=== PATIENT | male | born 1950 ===

== ENCOUNTER 2016-12-18 17:17 | Inpatient (IN) | payer MEDICARE ==
[~2016-12-18] VITALS: Ht 182.8 cm; Wt 107.0 kg
--- NOTE | ~2016-12-18 | PR ---
[place], [place] PROGRESS NOTE [id number] #: [id number] ROOM: 310 DOCTOR: ANN SALAZAR MD BIRTHDATE: [birth year] DOS: 12/21/2016 CHIEF COMPLAINT: "Yeah, I will go into a rehab to make whatever life I have possible." SUMMARY OF THE VISIT: The patient was interviewed as he was resting quietly in bed. He engaged readily in conversation. He was short and terse, rather sarcastic with me for the most part. He did talk to me about having the family session yesterday with his daughters and did state that he did agree to go to a 30-day rehab and hopefully into assisted living. He did seem more negative about this then I thought he would be and was very sarcastic about going into any type of rehab, stating that his life was not worth living anyway, so how would rehab help him in any way. I attempted to support and redirect and he did lighten his approach. He did report on a positive note that he is sleeping better with the Remeron and he has been compliant with it. He denies any side effects from the medication itself. MENTAL STATUS: He remains alert and oriented with some gaps. Mood does seem to be trending gradually toward improvement and euthymia. Affect is more appropriate. There is no denisha or hypomania. There are no overt auditory or visual hallucinations. No delusions, no paranoia. Memory for the most part is intact. PLAN: I will maintain his current psychotropic regimen as he is achieving some benefits with the Remeron at this time. We will continue to engage him in individual and naqvi milieu activity with the plan to return to the least restrictive environment when psychiatrically stable. ANN SALAZAR MD CM:PNTRANS 5 1 ANN SALAZAR MD 12/21/1633 interface
--- NOTE | ~2016-12-18 | PR ---
[place], [place] PROGRESS NOTE NAME: BHARGAVI SANTANA UNIT #: [id number] ROOM: 310 DOCTOR: ANN SALAZAR MD BIRTHDATE: [birth year] DOS: 12/20/2016 CHIEF COMPLAINT: "My daughter is full of shit." SUMMARY OF THE VISIT: The patient was interviewed as he rested in bed. He continues to deny suicidal thoughts and states that his daughters are full of shit. When pushed as to why they would believe that he is so depressed, he reported once again that he feels that they have noticed that he has not been the same since he broke up with his girlfriend in April. He has, however, also verbalized that he has had issues with sleep, appetite and memory and these are all consistent with ongoing neurovegetative symptoms of major depression. He did on a positive note take the Remeron last evening. He is slated to have a family session today. MENTAL STATUS: He is alert and oriented with mild time gaps, but nothing major. Mood does seem to be depressed. Affect is still somewhat flat and blunted with a constricted range. He denies any suicidal thoughts. There is no denisha or hypomania. There are no overt auditory or visual hallucinations. No delusions are voiced. No paranoia seems present. Memory for the most part is intact. PLAN: I will maintain his current dose of Remeron 15 mg at bedtime. We will proceed with the family session and determine from there what information is pertinent to determine whether or not he needs to have a continued length of stay or not. Engage in individual and naqvi milieu activity, returning home or to the least restrictive environment when psychiatrically stable. ANN SALAZAR MD CM:PNTRANS [id number] ANN SALAZAR MD 12/20/16 0842 interface
--- NOTE | ~2016-12-18 | PR ---
[place], [place] PROGRESS NOTE NAME: BHARGAVI SANTANA UNIT #: [id number] ROOM: 310 DOCTOR: ANN SALAZAR MD BIRTHDATE: [birth year] DOS: 12/22/2016 CHIEF COMPLAINT: "I guess I am better, but everything is relative isn't it?" SUMMARY OF THE VISIT: The patient was interviewed in his room. He responded appropriately to questions, but was rather sarcastic, short and terse with me. He reports he is sleeping better since the initiation of the Remeron and does note that his appetite has improved. He still is depressed, some of this is situational. He is not happy with being here, but realizes that he needs to receive some type of help. He continues to minimize some of his actions. There is no hypomania or denisha. There are no psychotic symptoms. There are no side effects from the medication themselves. MENTAL STATUS: He is alert and oriented to person, place and time. Mood does seem to be trending significantly towards euthymia. Affect is much more appropriate. There are no symptoms of hypomania or denisha. There are no psychotic symptoms noted. He processes information well and his speech rate and pattern is within normal limits. He denies suicidal thoughts, homicidal thoughts and any self-injurious thoughts. Memory is intact for short, intermediate and long-term. PLAN: Maintain the current psychotropic regimen, continue to engage in individual and naqvi milieu activity. We are awaiting a passer to be able to discharge him into a 30-day rehab stay. The ultimate plan would be to do this and then from there have him set up in an assisted living situation. We will continue to have him engage in individual and naqvi milieu activity, returning to the least restrictive environment then when stable. ANN SALAZAR MD CM:PNTRANS [phone] ANN SALAZAR MD 12/22/1615 interface
--- NOTE | ~2016-12-18 | WRIGHTHP ---
[place], [place] PATIENT HISTORY AND PHYSICAL EXAM NAME: BHARGAVI SANTANA [facility] #: [id number] UNIT #: [id number] ROOM: 312 DOCTOR: ANN SALAZAR MD BIRTHDATE: [birth year] DOS: 12/19/2016 CHIEF COMPLAINT: "I am not suicidal, I don't know why my daughter thinks that I am disowning her when I get back home." HISTORY OF PRESENT ILLNESS: This is a 66-year-old white male who was sent here on an involuntary basis from [facility] in the [facility]. The patient apparently had presented there with problems with his blood sugar. Per his daughter's report, she feels that he has been adjusting his insulin pump and has been turning it up to the point where his blood sugars have been dangerously low. She stated to the physicians there that she feels that her dad is trying to kill himself. This morning and last evening here, he has convincingly denied suicidal thoughts, stating that this is the furthest thing from his mind and he would never do such a stupid thing. He reports that he is sleeping well, eating well and denies the need for any type of medication. He does report an episode of depression in the past when he broke up with his girlfriend of 6 years and also after the deaths of his mother and brother recently. He, however, denies any neurovegetative symptoms and again consistently is denying any suicidal ideation, homicidal ideation or any self-injurious thoughts. He is very much interested in being able to get out of the hospital because he wants to attend his son's birthday. He was pleasant and bright upon approach. PAST MEDICAL HISTORY: Remarkable for the diabetes, vitamin D deficiency, hyperlipidemia, coronary artery disease. MENTAL STATUS: The patient is alert and oriented to person, place and time. Mood seems fairly euthymic. Affect is normal. Speech rate and pattern is within normal limits. There is no hypomania or denisha. There are no auditory or visual hallucinations. No delusions, no paranoia. Short, intermediate and long-term memories are intact. DIAGNOSIS: Major depression, recurrent. PLAN: At this point, the patient is refusing to take medications, stating that he is not depressed and does not need unnecessary medicine. He was pleasant and cooperative upon approach and I discussed with him the need for us to gain more information in order to ascertain as to whether or not he needs to have a continued stay here or if it is safe to return him home. Along these lines, I have talked to [employer] to reach out to both the son and the daughter to gain more information about his behavior and his mood. Once we have a better understanding of what is happening, we will be able to more appropriately determine continued length of stay and discharge plans. [place], [place] PATIENT HISTORY AND PHYSICAL EXAM [facility]: [id number] #: [id number] ROOM: [facility] DOCTOR: ANN SALAZAR MD BIRTHDATE: [birth year] ANN SALAZAR MD CM:HISPHYS:PATIENT HISTORY AND PHYSICAL EXAMINATION 2 6 ANN SALAZAR MD 12/19/16814 interface
[2016-12-18] MEDS ORDERED: TYLENOL325 M2 PO (17:23)
[2016-12-18] MEDS ORDERED: ASPIRIN ADULT L81 M1 PO (17:23)
[2016-12-18] MEDS ORDERED: GLUCOSE GEL38 GM PO (17:24)
[2016-12-18] MEDS ORDERED: FLONASE ALLERG9.9 ML NAS (17:25)
[2016-12-18] MEDS ORDERED: COZAAR100 MG PO (17:25)
[2016-12-18] MEDS ORDERED: PLAVIX75 M1 PO (17:26)
[2016-12-18] MEDS ORDERED: VITAMIN D-32000 UNIT PO (17:29)
[2016-12-18] MEDS ORDERED: MOTRIN 600 MG E4 TAB PO (17:30)
[2016-12-18] MEDS ORDERED: CRESTOR10 M1 PO (17:30)
[2016-12-18] MEDS ORDERED: LANTUS SOL100 UNIT/1 SQ (17:32)
--- NOTE | 2016-12-18 18:48 | NUR ---
dr hare aware of pt having an insulin pump and that the patient was decreasing and increasing his insuline intentionally to od. pt is depressed per daughter his mother recently
[2016-12-18 21:23] VITALS: BP 151/67
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
--- NOTE | 2016-12-18 21:45 | NUR ---
INITIAL BEDSIDE GLUCOSE OBTAINED ON ADMISSION 236.
--- NOTE | 2016-12-18 21:56 | NUR ---
URINE SENT PER ORDERS
[2016-12-18 21:59] LABS: BILIRUBIN NEGATIVE (NEGATIVE); BLOOD NEGATIVE (NEGATIVE); CLARITY CLEAR (CLEAR); COLOR YELLOW (YELLOW); GLUCOSE NEGATIVE (NEGATIVE); KETONE NEGATIVE (NEGATIVE); LEUKO ESTERASE NEGATIVE (NEGATIVE); NITRITE NEGATIVE (NEGATIVE); PH 5.5 (5.0-9.0); SPECIFIC GRAVITY 1.015 (1.005-1.030); UROBILINOGEN 0.2 E.U./dl (0.2-1.0)
--- NOTE | 2016-12-18 22:00 | NUR ---
REFUSED HS REMERON. STATED HE DID NOT NEED ANY PSYCH MEDS. ON MED CONSENT, PT HAS REFUSED CONSENT FOR REMERON, ATIVAN & GEODON.
[2016-12-18] MEDS ORDERED: DOXYCYCLINE100 M3 PO (22:05)
--- NOTE | 2016-12-18 22:05 | NUR ---
PT REFUSED TO ALLOW RN TO UNWRAP HIS LEFT FOOT. STATED, "IT WAS JUST WRAPPED AT THE HOSPITAL, ITS FINE"
[2016-12-18 22:12] LABS: BACTERIA TRACE; HYALINE CAST 0-2; MUCOUS 1+; WBC 0-2 wbc/hpf (0-5)
--- NOTE | 2016-12-18 22:54 | NUR ---
SPOKE WITH DR Nas KINNEY. UPDATED HER ON ADMISSION AND THAT MEDICATION REC READY FOR HER TO REVIEW. DR PIMENTEL IS HOSPITALIST
--- NOTE | 2016-12-18 23:30 | NUR ---
PHONED PTS DAUGHTER, TOÑO & LEFT VOICE MESSAGE. PT IS WONDERING WHERE HIS CELL PHONE IS.
--- NOTE | 2016-12-18 23:35 | NUR ---
PTS DAUGHTER RETURNED PHONE CALL & STATED THAT HER SISTER, RENAY HAS PTS CELL PHONE. PT WAS INFORMED.
--- NOTE | 2016-12-19 00:31 | NUR ---
DR SUJATA KINNEY ON UNIT TO SEE PT AT THIS TIME.
--- NOTE | 2016-12-19 00:40 | NUR ---
BEDSIDE GLUCOSE REPEATED @ 0531. 434. DR SUJATA KINNEY NOTIFIED & ORDERS RECIEVED TO GIVE NOVOLIN 5 UNITS NOW.
[2016-12-19 01:38] VITALS: BP 151/67
--- NOTE | 2016-12-19 06:28 | NUR ---
PT HAS BEEN OBSERVED ON Q 15 MIN CHECKS & HAS SLEPT QUIETLY THROUGHOUT THE SHIFT PAST 0030.
--- NOTE | 2016-12-19 06:46 | NUR ---
AM BEDSIDE GLUCOSE 187
--- NOTE | 2016-12-19 06:47 | NUR ---
24 HR chart check completed.
[2016-12-19 07:01] LABS: BASO # 0.1 10*3/uL (0.0-0.1); BASO % 0.9 % (0.0-1.0); EOS # 0.2 10*3/uL (0.0-0.4); EOS % 3.5 % (1.0-4.0); HEMATOCRIT 37.6 % (42.0-52.0); HEMOGLOBIN 12.8 g/dl (14.0-18.0); LYMPH # 1.3 10*3/uL (1.3-4.4); LYMPH % 23.3 % (27.0-41.0); MEAN CELL VOLUME 89.3 fl (80.0-94.0); MEAN CORPUSCULAR HGB 30.4 pg (27.0-31.0); MEAN PLATELET VOLUME 9.7 fl (9.6-12.3); MONO # 0.6 10*3/uL (0.1-1.0); MONO % 9.8 % (3.0-9.0); NEUT # 3.5 10*3/uL (2.3-7.9); NEUT % 60.4 % (47.0-73.0); PLATELET COUNT AUTOMATED 205 10*3/uL (130-400); RED BLOOD COUNT 4.21 10*6/uL (4.50-5.90); RED CELL DISTRI WIDTH 13.7 % (0-14.5); WHITE BLOOD COUNT 5.7 10*3/uL (4.8-10.8)
[2016-12-19 07:29] LABS: CREATININE 1.91 mg/dL (0.70-1.30); POTASSIUM 4.2 mmol/L (3.5-5.1); TOTAL PROTEIN 6.3 gm/dL (6.4-8.2)
[2016-12-19 07:37] LABS: THYROID STIM HORMONE (HS) 1.28 uIU/ml (0.358-4.75)
[2016-12-19 07:52] LABS: VITAMIN D, 25-HYDROXY 33.1 ng/mL (30-100)
[2016-12-19 07:57] VITALS: BP 134/68
--- NOTE | 2016-12-19 08:28 | NUR ---
PHYSICAL THERAPY PAtient requests no PT this date. Patient encouraged to particpate. Will attempt at a later date. Thank you for this referral. Tracy Gaines,PT
--- NOTE | 2016-12-19 08:49 | NUR ---
BHARGAVI SANTANA [id number] Please refer to the physician's history and physical for past medical history, comorbid conditions, and allergies. Diagnosis: MAJOR DEPRESSIVE DISORDER Juanito Score: , WOUND DESCRIPTIONS: Location of the wound: left distal foot Type of wound: surgical Thickness: Full Size: 1.5cm x 5.8cm x 0.2cm Tunneling: none Undermining: none Sinus Tract: none Presence of Exudate: serous Amount: Light Color: Black Odor: None Periwound Skin Appearance: Normal Wound edges: approximated Pain (associated with wound): none at time of assessment How does patient state this happened? pt stated he spilled spagitti water while cooking on his foot and since he is diabetic he had to have his toes amputated in april2016. Patient stated that he has someone that comes in twice a week and changes his dressing and he is to be using santyl on the area. Surface the patient is resting on: Proform SKIN PREVENTION RECOMMENDATION: 1. Pressure redistribution support surface as appropriate 2. Elevate heels 3. Remove boots/TEDS every shift and reapply 4. Head of bed 30 degrees as tolerated 5. Assess nutrition and hydration 6. Manage moisture 7. Avoid the use of containment devices while in bed 8. Use absorptive products on surfaces limit layers of linens on bed 9. Turn and reposition every 1-2 hours in bed and every 1 hour in chair as tolerated 10. Weight shifts every 15 minutes while up in chair 11. Offloading with pillows or device to keep heels elevated off bed 12. Monitor skin at least every shift 13. Inspect under medical devices twice a day WOUND TREATMENT RECOMMENDATIONS: Cleanse left distal foot with nss and apply sureprep to surounding wound apply therahoney to wound bed cover with abd and rolled gauze daily. Consult surgery for possible debridement of left distal foot.
--- NOTE | 2016-12-19 11:23 | NUR ---
DR. MCLEOD SURGEON ON UNIT TO SEE PATIENTS LEFT FOOT WOUND.
--- NOTE | 2016-12-19 11:37 | NUR ---
Holiday remenissing/orientation and goals Patient declined to attend group. Patient preffers to stay in room. Patient stated " I dont want to sound mean but its like a long term up there. Im to young to be in here." Dicussed one on one group with patient and he continued to decline even with education of benefits.
--- NOTE | 2016-12-19 11:47 | NUR ---
DR. CARO NOTIFIED OF [employer].
--- NOTE | 2016-12-19 12:41 | NUR ---
PATIENT IS ALERT TO PERSON, PLACE, TIME AND SITUATION. ABLE TO VOICE NEEDS. MOOD IS DEPRESSED. DENIES ANY HALLUCINATIONS, DELUSIONS, HI/SI OR PAIN. APPETITIE IS GOOD WITH ADEQUATE FLUIDS. PARTICIPATES IN GROUP SESSIONS. INTERACTIVE WITH STAFF AND OTHER PATIENTS. COOPERATIVE WITH WOUND DRESSING CHANGE. 1 PERSON SUPERVISION ONLY, INDEPENDANT WITH ACTIVITIES OF DAILY LIVING. CONTINENT OF BOWEL AND BLADDER. TRANSFERS INDEPENDANT FROM BED TO WHEELCHAIR AND VIA VERSA. Q 15 MINUTE SAFETY CHECKS MAINTIANED. CONTINUE TO MONITOR FOR SUICIDAL IDEATIONS, PROVIDED ONE ON ONE NEEDED TO EXPRESS FEELIING AND NOTIFTY DR. SALAZAR OF HAVING HI.
--- NOTE | 2016-12-19 14:35 | NUR ---
ON UNIT TO SEE PATIENT.
--- NOTE | 2016-12-19 14:54 | NUR ---
PT REFUSES OT EVALUATION AT THIS TIME.
--- NOTE | 2016-12-19 15:04 | NUR ---
Coping skills Patient declined to attend group. Encourage patient to participate with the other men however patient continued to decline. Will continue to offer groups.
--- NOTE | 2016-12-19 16:06 | NUR ---
Shift chart check completed.
[2016-12-19 20:03] VITALS: BP 145/63
--- NOTE | 2016-12-19 21:22 | NUR ---
HS BEDSIDE GLUCOSE 266. RECEIVED 10 UNITS COVERAGE.
--- NOTE | 2016-12-19 21:29 | NUR ---
24 HR chart check completed.
--- NOTE | 2016-12-19 22:00 | NUR ---
COMPLIANT TAKING HS MEDICATIONS.
--- NOTE | 2016-12-20 06:27 | NUR ---
PT HAS BEEN OBSERVED ON Q 15 MIN CHECKS & HAS SLEPT QUIETLY THROUGHOUT THE SHIFT PAST 2129.
--- NOTE | 2016-12-20 06:41 | NUR ---
AM BEDSIDE GLUCOSE 181
--- NOTE | 2016-12-20 07:35 | NUR ---
DR. MCINTYRE NOTIFIED TO LET DR. PAGAN KNOW OF PATIENT BEING DISCHARGED TODAY.
[2016-12-20 07:50] VITALS: BP 115/57
--- NOTE | 2016-12-20 07:56 | NUR ---
PHYSICAL THERAPY PAtient scheduled for D/C this date. Thank you for this referral. Tracy guerin,PT
[2016-12-20 09:30] VITALS: BP 160/82
--- NOTE | 2016-12-20 10:58 | NUR ---
Stress/anger management and orientation/trivia and goals Patient declined to attend group. Patient kept blankets pulled over head.
--- NOTE | 2016-12-20 12:34 | NUR ---
PATIENT IS ALERT AND ORIENT TO PERSON, PLACE, TIME AND SITUATION; ABLE TO VOICE NEEDS. RESPIRATIONS ARE EASY, NON-LABORED ON ROOM AIR. MOOD IS IRRATIBLE AT TIMES IN REGARD TO HIS FAMILY, CALM AND INTERACTIVE WITH STAFF. DENIES ANY HALLUCINATIONS, DELUSIONS, HI/SI OR PAIN. INDEPENDANT WITH ACTIVITIES OF DAILY LIVING. CONTINENT OF BOWEL AND BLADDER. APPETITE IS FOOD WITH ENCOURAGA TO INCREASE FLUIDS. MEDICATION COMPLIANT WITH EDUCATIONS. Q 15 MINUTE SAFETY MAINTAINED. CONTINUE TO MONITOR MOOD AND PROVIDE ONE ON ONE TO EXPRESS FEELING.
--- NOTE | 2016-12-20 13:27 | NUR ---
POP met with pt and his two dtrs and older son Frank. The family was able to express their concerns to pt. about "feeling" like he has a "" wish and that they need him to still be around. pt. was angry at first and states "Just leave me alone" but as the session proceeded, pt. was able to see that his children are concerned about him and want him "to be around, in addition to it "it being hard on him". pt. was agreeable to staying until the pasrr can be approved and he can be transferred to a 30 day rehab stay if pasrr approved. If denied, pt. will return home with home health. pt and his dtr's have already started the passport process for al and caregivers and thought he would qualify and be placed within a month. pt. signed consent to stay for treatment until he can be discharged for a 30 day rehab stay or return home with home health if denied arehab stay. The children state they will visit and support pt. while he is here and want him to be "safe".
--- NOTE | 2016-12-20 13:52 | NUR ---
DR CARO NOTIFIED OF PATIENT NOT BEING DISCHARGED TODAY.
--- NOTE | 2016-12-20 14:55 | NUR ---
Games and relaxation Patient declined to attend group. Patient just finished family meeting with POP.
--- NOTE | 2016-12-20 15:15 | NUR ---
SW completed and faxed pasrr, referrals will be sent out to [place] for 30 day rehab to [facility] and other facilities in [facility] per pt. and family request.
--- NOTE | 2016-12-20 15:59 | NUR ---
Shift chart check completed.
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
[2016-12-20 20:10] VITALS: BP 142/68
--- NOTE | 2016-12-21 04:27 | NUR ---
24 HR chart check completed.
--- NOTE | 2016-12-21 06:09 | NUR ---
SLEPT WELL PAST 2200PM
[2016-12-21 07:54] LABS: CREATININE 1.66 mg/dL (0.70-1.30); POTASSIUM 4.4 mmol/L (3.5-5.1)
[2016-12-21 08:03] VITALS: BP 142/68
--- NOTE | 2016-12-21 09:00 | NUR ---
DANIEL SALDAÑA CNP OF HOSPITALIST GROUP HERE TO SEE PT AT THIS TIME.
--- NOTE | 2016-12-21 09:57 | NUR ---
Rehab referrrals sent out to: [facility], [facility] and Raeann Ricks at the [facility].
--- NOTE | 2016-12-21 09:58 | NUR ---
Notified Ruthie cunningham [place] of [facility] that referral was on its way.
--- NOTE | 2016-12-21 10:32 | NUR ---
POP rec'd call back from Jacque of [facility], she states they will accept pt. and asked about d/c date. POP let her know that it depends upon pasrr ssessment, which assesssor is coming today per Laurence at [facility] and how quick we get the pasrr back. The d/c plan is to d/c as soon as the pasrr has been approved for a 30 day rehab stay.
--- NOTE | 2016-12-21 11:02 | NUR ---
Goal,Exercise and Trivia Patient did attend group as well as participate. Patient seemed to be depressed due to missing his sons birthday(yesterday) his daughters birthday(today) and fears he will miss Thanksgiving at home also. Tried to reassure patient but he just states "I shouldn't be here." Patient easily bored with group stating he wanted to leave but did not. Patient not interested in any activies offered to him by this staff member
--- NOTE | 2016-12-21 12:50 | NUR ---
PT IS ALERT AND ORIENTED TO PERSON, PLACE, TIME AND SITUATION. MEMORY APPEARS INTACT. RESPIRATIONS EASY ON ROOM AIR. MOOD IS DEPRESSED, ANGRY/IRRITABLE AT TIMES, AFFECT IS FLAT. SPEECH IS WNL AND COHERENT, ABLE TO MAKE NEEDS KNOWN WITHOUT DIFFICULTY. PT DENIES SI/HI. PT DENIES HALLUCINATIONS, NO RESPONSE TO INTERNAL STIMULI NOTED. NO PARANOIA/DELUSIONS NOTED. MEDICATION COMPLIANT WITHOUT DIFFICULTY. PT REPEATEDLY STATES TO STAFF AND PEERS "I DON'T KNOW WHY I'M HERE. I DON'T BELONG HERE." PT USES WHEELCHAIR FOR MOBILITY, SOCIALIZING WITH PEERS. NO DISTRESS NOTED. Q15 MIN MONITORING CONTINUES PER POLICY. REFER TO [facility] FOR SPECIFIC MONITORING.
--- NOTE | 2016-12-21 14:19 | NUR ---
POP rec'd message that pt dtr. called to check on pasrr (Carli). POP ret'd call and let her know the net front end developer from [facility] was in today and it is a matter of time before the approval will be made. Soemtimes it can be by the next day, but usually 2-3 days.
--- NOTE | 2016-12-21 15:24 | NUR ---
Thanksgiving Reminiscing Patient did not attend group this afternoon. Patient was in bed with covers over his head stated he was trying to sleep. Patient was encouraged to attend but prefered to take his nap
--- NOTE | 2016-12-21 17:54 | NUR ---
SHIFT CHART CHECK COMPLETED.
[2016-12-21 19:35] VITALS: BP 119/60
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
--- NOTE | 2016-12-22 03:07 | NUR ---
24 HR chart check completed.
--- NOTE | 2016-12-22 05:54 | NUR ---
PT SLEPT 8 HOURS WITH OUT INTURRUPTION
[2016-12-22 07:44] VITALS: BP 138/69
--- NOTE | 2016-12-22 07:47 | NUR ---
Spoke with Dr. hare in regards to other referrals for NH placement and per him, referrals were also sent to [facility] and [facility].
--- NOTE | 2016-12-22 09:55 | NUR ---
Rec.d call back from [facility] not able to accept due to Si.
--- NOTE | 2016-12-22 10:52 | NUR ---
POP spoke with Jeni at [facility] who sates pt. not approraite for their facility.
--- NOTE | 2016-12-22 11:00 | NUR ---
PATIENT IS ALERT AND ORIENT TO PERSON, PLACE, TIME AND SITUATION; ABLE TO VOICE NEEDS. RESPIRATIONS ARE EASY, NON-LABORED ON ROOM AIR. DENIES ANY HALLUCINATIONS, DELUSIONS, HI/SI OR PAIN. INTERACTS WITH STAFF, UP FOR MEALS. INDEPENDENT WITH ACTIVITIES OF DAILY LIVING. CONTINENT OF BOWEL AND BLADDER. MEDICATION COMPLIANT. CAN BE ISOLATIVE AND IRRITABLE AT TIMES. UPSET WITH MEAL SELECTIONS DUE TO CURRENT DIET-1800 ADA/RENAL DIET. Q 15 MINUTE SAFETY CHECKS MAINTAINED. CONTINUE TO [place] FOR DEPRESSED MOOD AND VOICED THOUGHTS OF SI, PROVIDE ONE ON ONE TO EXPRESS FEELING NEEDEDY
--- NOTE | 2016-12-22 11:15 | NUR ---
DANIEL SALDAÑA CNP NOTIFIED OF PATIENT'S DISCHARGE.
--- NOTE | 2016-12-22 11:25 | NUR ---
DANIEL SALDAÑA CNP ON UNIT TO SEE PATIENT.
[2016-12-22] MEDS ORDERED: MIRTAZAPINE15 M2 PO (11:30)
--- NOTE | 2016-12-22 11:32 | NUR ---
Goals/Exercise/Getting Rid of Stress Patient did not attend group this morning. Patient was in bed with his head covered. Ecouraged patient to come to group but he declined stating "I want to go home." Patient also stated he did not get to speak to the this morning and wanted to see him. had gone for the day, so spoke to SW who stated she would go talk to patient.
--- NOTE | 2016-12-22 11:37 | NUR ---
AMAYA spoke with Raeann at the [facility], who states pt. can be admitted there. pt. was notified by Amaya that he will be leaving at 1pm and pt states "I will neeed to get cleaned up then". Amaya assurred pt. he will get cleaned up before d/c.
--- NOTE | 2016-12-22 11:38 | NUR ---
Nurse nancy, spoke to dtr. and notified her where pt. was being d/c'ed to. pt dtr [facility].
--- NOTE | 2016-12-22 11:45 | NUR ---
pt. to be d/c'ed today to [place] [facility] at 1pm via [facility]. pt dtr ro[facility] notified. geoff faxed to [facility] at the [facility] Dr. hare gave permission for d/c to happen today.
--- NOTE | 2016-12-22 12:18 | NUR ---
NURSE TO NURSE GIVEN TO MITCH GREGORY AT THE [facility], ALL QUESTIONS ANSWERED, PATIENT IN DINNING ROOM EATING LUNCH AT THIS TIME, BUILDINGS AND GROUNDS COORDINATOR TIME FOR DISCHARGE IS SET FOR 1300.
--- NOTE | 2016-12-22 14:05 | NUR ---
PT D/C TO [facility] AT [facility]IA [facility]. BELONGINGS SENT.
== END 2016-12-22 13:55 | disposition other institution (70) | DRG 885 ==
LOC: 3N 17:17
PROVIDERS: Internal Medicine; ADMIT Psychiatry & Neurology Psychiatry
DX: F33.9 Major depressive disorder, recurrent, unspecified (principal); E10.22 Type 1 diabetes mellitus with diabetic chronic kidney disease; E10.42 Type 1 diabetes mellitus with diabetic polyneuropathy; I13.0 Hypertensive heart and chronic kidney disease with heart failure and stage 1 through stage 4 chronic kidney disease, or unspecified chronic kidney disease; E10.621 Type 1 diabetes mellitus with foot ulcer; M19.90 Unspecified osteoarthritis, unspecified site; I50.9 Heart failure, unspecified; N18.3 Chronic kidney disease, stage 3 (moderate); E78.5 Hyperlipidemia, unspecified; R00.1 Bradycardia, unspecified; L97.509 Non-pressure chronic ulcer of other part of unspecified foot with unspecified severity; I25.10 Atherosclerotic heart disease of native coronary artery without angina pectoris; Z53.29 Procedure and treatment not carried out because of patient's decision for other reasons; Z96.642 Presence of left artificial hip joint; Z89.422 Acquired absence of other left toe(s); Z95.5 Presence of coronary angioplasty implant and graft; Z82.49 Family history of ischemic heart disease and other diseases of the circulatory system; Z80.9 Family history of malignant neoplasm, unspecified; Z79.84 Long term (current) use of oral hypoglycemic drugs; Z79.899 Other long term (current) drug therapy; Z91.041 Radiographic dye allergy status